=== PATIENT | male | born 1980 ===

== ENCOUNTER 2018-09-07 09:15 | Outpatient (CLI) | payer BC ==
--- NOTE | 2018-09-07 11:31 | Diagnostic Imaging Report ---
Indication: Hematuria, history of renal calculi Technique: Grayscale and duplex images of the kidneys, retroperitoneum, and bladder were obtained. Comparison: none Findings: Right kidney measures 10.4 cm in length. Left kidney measures 10.7 cm in length. Both kidneys demonstrate normal echogenicity. No hydronephrosis. Calcifications are seen in the renal sinuses bilaterally. One on the right measures 7 mm in diameter. Largest on the left measures 9 mm in diameter. There is also suggestion of a 9 mm calculus at the left ureteropelvic junction. There is mild left hydronephrosis. There is a small cyst in the left renal sinus Normal inferior vena cava. Bladder is normal. The prostate is unremarkable, volume calculated 11 mm Impression: Bilateral renal calculi Possible right ureteropelvic junction calculus resulting in mild hydronephrosis. Consider further evaluation with CT Incidental finding left renal cyst. Findings essentially phone with Dr. Garduno at approximately 1110 on 09/07/2018
== END 2018-09-07 11:15 | disposition home or self-care (01) ==
LOC: ULS 09:15
DX: R31.9 Hematuria, unspecified (principal); N20.0 Calculus of kidney; N13.2 Hydronephrosis with renal and ureteral calculous obstruction
CPT/HCPCS: 76770